=== PATIENT | male | born 1950 | race Caucasian/White ===

== ENCOUNTER 2016-05-02 09:01 | Outpatient (RCR) | payer OTHER ==
[~2016-05-02] VITALS: Ht 182.9 cm; Wt 67.6 kg
[~2016-05-02 09:01] MED LIST: Atropine Sulfate 0.4mg/ml inj IVP PRN
[2016-05-02] MEDS ORDERED: Ketorolac 60mg Inj ONE (09:02)
[2016-05-02] MEDS ORDERED: NS 550ML IV ONE (09:02)
[2016-05-02] MEDS ORDERED: Midazolam 2mg/2ml Inj ONE (09:02)
[2016-05-02] MEDS ORDERED: Methohexital Sodium Syr 100mg/10ml IVP ONE (09:02)
[2016-05-02] MEDS ORDERED: Succinylcholine 20mg/ml 10ml vial ONE (09:02)
== END 2016-05-22 | disposition home or self-care (01) ==
LOC: ECT 09:01
DX: F33.2 Major depressive disorder, recurrent severe without psychotic features (principal); F34.1 Dysthymic disorder; F19.10 Other psychoactive substance abuse, uncomplicated; C22.7 Other specified carcinomas of liver; I10 Essential (primary) hypertension; K21.9 Gastro-esophageal reflux disease without esophagitis
CPT/HCPCS: 90870; J0330; J2250; J7040

== ENCOUNTER 2016-05-28 09:21 | Outpatient (RCR) | payer OTHER ==
[~2016-05-28] VITALS: Ht 182.9 cm; Wt 67.6 kg
[~2016-05-28 09:21] MED LIST changes: -Atropine Sulfate 0.4mg/ml inj IVP PRN; +Heplock Flush 100 units/ml 3 ml syr IV SCH
[2016-05-28] MEDS ORDERED: Ketorolac 30mg Inj ONE (09:22)
[2016-05-28] MEDS ORDERED: NS 550ML IV ONE (09:22)
[2016-05-28] MEDS ORDERED: Heplock Flush 100 units/ml 3 ml syr ONE (09:22)
[2016-05-28] MEDS ORDERED: Midazolam 2mg/2ml Inj ONE (09:22)
[2016-05-28] MEDS ORDERED: Methohexital Sodium Syr 100mg/10ml IVP ONE (09:22)
[2016-05-28] MEDS ORDERED: Succinylcholine 20mg/ml 10ml vial ONE (09:22)
== END 2016-06-19 | disposition home or self-care (01) ==
LOC: ECT 09:21
DX: F33.2 Major depressive disorder, recurrent severe without psychotic features (principal)
CPT/HCPCS: 90870; J0330; J1642; J1885; J2250; J7040

== ENCOUNTER 2016-06-25 08:18 | Outpatient (RCR) | payer OTHER ==
[~2016-06-25] VITALS: Ht 182.9 cm; Wt 67.6 kg
[2016-06-25] MEDS ORDERED: Methohexital Sodium Syr 100mg/10ml IVP ONE (08:19)
[2016-06-25] MEDS ORDERED: Midazolam 2mg/2ml Inj ONE (08:19)
[2016-06-25] MEDS ORDERED: NS 550ML IV ONE (08:19)
[2016-06-25] MEDS ORDERED: Ketorolac 60mg Inj ONE (08:19)
[2016-06-25] MEDS ORDERED: Succinylcholine 20mg/ml 10ml vial ONE (08:19)
[2016-06-25] MEDS ORDERED: Heplock Flush 100 units/ml 3 ml syr ONE (08:19)
[2016-06-25] MEDS ORDERED: Heplock Flush 100 units/ml 3 ml syr IV ONE (12:30)
[2016-06-25] MEDS ORDERED: Atropine Sulfate 0.4mg/ml inj IVP PRN (18:15)
== END 2016-07-20 | disposition home or self-care (01) ==
LOC: ECT 08:18
DX: F33.2 Major depressive disorder, recurrent severe without psychotic features (principal)
CPT/HCPCS: 90870; J0330; J1642; J2250; J7040

== ENCOUNTER 2016-07-25 06:35 | Outpatient (RCR) | payer OTHER ==
[~2016-07-25] VITALS: Ht 182.9 cm; Wt 67.6 kg
[2016-07-25] MEDS ORDERED: NS 550ML IV ONE (06:36)
[2016-07-25] MEDS ORDERED: Midazolam 2mg/2ml Inj ONE (06:36)
[2016-07-25] MEDS ORDERED: Methohexital Sodium Syr 100mg/10ml IVP ONE (06:36)
[2016-07-25] MEDS ORDERED: Ketorolac 30mg Inj ONE (06:36)
[2016-07-25] MEDS ORDERED: Heplock Flush 100 units/ml 3 ml syr ONE (06:36)
[2016-07-25] MEDS ORDERED: Succinylcholine 20mg/ml 10ml vial ONE (06:36)
[2016-07-25] MEDS ORDERED: Heplock Flush 100 units/ml 3 ml syr IV ONE (12:30)
== END 2016-08-19 | disposition home or self-care (01) ==
LOC: ECT 06:35
DX: F33.2 Major depressive disorder, recurrent severe without psychotic features (principal)
CPT/HCPCS: 90870; J0330; J1642; J1885; J2250; J7040

== ENCOUNTER 2016-08-22 05:11 | Outpatient (RCR) | payer OTHER ==
[~2016-08-22] VITALS: Ht 182.9 cm; Wt 67.6 kg
[2016-08-22] MEDS ORDERED: Ketorolac 60mg Inj ONE (05:12)
[2016-08-22] MEDS ORDERED: Succinylcholine 20mg/ml 10ml vial ONE (05:12)
[2016-08-22] MEDS ORDERED: NS 550ML IV ONE (05:12)
[2016-08-22] MEDS ORDERED: Midazolam 2mg/2ml Inj ONE (05:12)
[2016-08-22] MEDS ORDERED: Heplock Flush 100 units/ml 3 ml syr ONE (05:12)
[2016-08-22] MEDS ORDERED: Methohexital Sodium Syr 100mg/10ml IVP ONE (05:12)
[2016-08-22] MEDS ORDERED: Heplock Flush 100 units/ml 3 ml syr IV ONE (08:37)
[2016-09-19] MEDS ORDERED: Methohexital Sodium Syr 100mg/10ml IVP ONE (07:00)
[2016-09-19] MEDS ORDERED: Ketorolac 60mg Inj ONE (07:00)
[2016-09-19] MEDS ORDERED: Midazolam 2mg/2ml Inj ONE (07:00)
[2016-09-19] MEDS ORDERED: Succinylcholine 20mg/ml 10ml vial ONE (07:00)
[2016-09-19] MEDS ORDERED: NS 550ML IV ONE (07:00)
== END 2016-09-19 | disposition home or self-care (01) ==
LOC: ECT 05:11
DX: F33.2 Major depressive disorder, recurrent severe without psychotic features (principal)
CPT/HCPCS: 90870; J0330; J1642; J2250; J7040

== ENCOUNTER 2016-10-15 06:04 | Outpatient (RCR) | payer OTHER ==
[~2016-10-15] VITALS: Ht 182.9 cm; Wt 67.6 kg
[2016-10-15] MEDS ORDERED: Midazolam 2mg/2ml Inj ONE (06:05)
[2016-10-15] MEDS ORDERED: Ketorolac 60mg Inj ONE (06:05)
[2016-10-15] MEDS ORDERED: Succinylcholine 20mg/ml 10ml vial ONE (06:05)
[2016-10-15] MEDS ORDERED: Methohexital Sodium Syr 100mg/10ml IVP ONE (06:05)
[2016-10-15] MEDS ORDERED: NS 550ML IV ONE (06:05)
== END 2016-10-19 | disposition home or self-care (01) ==
LOC: ECT 06:04
DX: F33.2 Major depressive disorder, recurrent severe without psychotic features (principal)
CPT/HCPCS: 90870; J0330; J2250; J7040

== ENCOUNTER 2016-11-12 05:17 | Outpatient (RCR) | payer OTHER ==
[~2016-11-12] VITALS: Ht 33 cm; Wt 0.5 kg
[2016-11-12] MEDS ORDERED: Succinylcholine 20mg/ml 10ml vial ONE (05:18)
[2016-11-12] MEDS ORDERED: Ketorolac 60mg Inj ONE (05:18)
[2016-11-12] MEDS ORDERED: Methohexital Sodium Syr 100mg/10ml IVP ONE (05:18)
[2016-11-12] MEDS ORDERED: NS 550ML IV ONE (05:18)
[2016-11-12] MEDS ORDERED: Midazolam 2mg/2ml Inj ONE (05:18)
== END 2016-11-19 | disposition home or self-care (01) ==
LOC: ECT 05:17
DX: F33.2 Major depressive disorder, recurrent severe without psychotic features (principal)
CPT/HCPCS: 90870; J0330; J2250; J7040

== ENCOUNTER 2016-12-10 07:24 | Outpatient (RCR) | payer OTHER ==
[~2016-12-10] VITALS: Ht 182.9 cm; Wt 67.6 kg
[2016-12-10] MEDS ORDERED: Methohexital Sodium Syr 100mg/10ml IVP ONE (07:25)
[2016-12-10] MEDS ORDERED: Midazolam 2mg/2ml Inj ONE (07:25)
[2016-12-10] MEDS ORDERED: Succinylcholine 20mg/ml 10ml vial ONE (07:25)
[2016-12-10] MEDS ORDERED: Ketorolac 60mg Inj ONE (07:25)
[2016-12-10] MEDS ORDERED: NS 550ML IV ONE (07:25)
== END 2016-12-20 | disposition home or self-care (01) ==
LOC: ECT 07:24
DX: F33.2 Major depressive disorder, recurrent severe without psychotic features (principal)
CPT/HCPCS: 90870; J0330; J2250; J7040

== ENCOUNTER 2017-01-21 07:21 | Outpatient (RCR) | payer OTHER ==
[~2017-01-21] VITALS: Ht 30.5 cm; Wt 0.5 kg
[2017-01-21] MEDS ORDERED: Midazolam 2mg/2ml Inj ONE (07:22)
[2017-01-21] MEDS ORDERED: Ketorolac 60mg Inj ONE (07:22)
[2017-01-21] MEDS ORDERED: NS 500ML IV ONE (07:22)
[2017-01-21] MEDS ORDERED: Methohexital Sodium Syr 100mg/10ml IVP ONE (07:22)
[2017-01-21] MEDS ORDERED: Succinylcholine 20mg/ml 10ml vial ONE (07:22)
[2017-01-21] MEDS ORDERED: Sodium Chloride 500ML 500 ML IV ONE (08:45)
[2017-01-21] MEDS ORDERED: Heplock Flush 100 units/ml 3 ml syr INJ ONE ×2 (08:45)
== END 2017-02-19 | disposition home or self-care (01) ==
LOC: ECT 07:21
DX: F33.2 Major depressive disorder, recurrent severe without psychotic features (principal)
CPT/HCPCS: 90870; J0330; J1642; J2250; J7040

== ENCOUNTER 2017-03-01 05:05 | Outpatient (RCR) | payer OTHER ==
[~2017-03-01] VITALS: Ht 182.9 cm; Wt 67.6 kg
[2017-03-01] MEDS ORDERED: Succinylcholine 20mg/ml 10ml vial ONE (05:06)
[2017-03-01] MEDS ORDERED: Midazolam 2mg/2ml Inj ONE (05:06)
[2017-03-01] MEDS ORDERED: NS 500ML ONE (05:06)
[2017-03-01] MEDS ORDERED: Methohexital Sodium Syr 100mg/10ml IVP ONE (05:06)
[2017-03-01] MEDS ORDERED: Ketorolac 60mg Inj ONE (05:06)
[2017-03-01] MEDS ORDERED: Heplock Flush 100 units/ml 3 ml syr IV ONE (08:15)
[2017-03-01] MEDS ORDERED: Sodium Chloride 500ML 500 ML IV ONE (08:15)
[2017-03-01 08:37] VITALS: BP 172/92
[2017-03-01 08:55] VITALS: BP 167/73
[2017-03-01 09:00] VITALS: BP 147/66
[2017-03-01 09:05] VITALS: BP 140/75
[2017-03-01 09:10] VITALS: BP 140/75
[2017-03-04] MEDS ORDERED: Succinylcholine 20mg/ml 10ml vial ONE (07:00)
[2017-03-04] MEDS ORDERED: Methohexital Sodium Syr 100mg/10ml IVP ONE (07:00)
[2017-03-04] MEDS ORDERED: Midazolam 2mg/2ml Inj ONE (07:00)
[2017-03-04] MEDS ORDERED: Ketorolac 60mg Inj ONE (07:00)
[2017-03-04] MEDS ORDERED: NS 500ML ONE (07:00)
[2017-03-04] MEDS ORDERED: Heplock Flush 100 units/ml 3 ml syr ONE (10:51)
[2017-03-04] MEDS ORDERED: Heplock Flush 100 units/ml 3 ml syr INJ ONE (10:51)
[2017-03-04] MEDS ORDERED: Sodium Chloride 500ML 500 ML IV ONE (10:51)
[2017-03-04 11:00] VITALS: BP 165/94
[2017-03-04 11:15] VITALS: BP 141/62
[2017-03-04 11:20] VITALS: BP 131/67
[2017-03-04 11:25] VITALS: BP 127/58
[2017-03-04 11:30] VITALS: BP 130/63
[2017-03-08] MEDS ORDERED: Midazolam 2mg/2ml Inj ONE (06:00)
[2017-03-08] MEDS ORDERED: Ketorolac 60mg Inj ONE (06:00)
[2017-03-08] MEDS ORDERED: NS 500ML ONE (06:00)
[2017-03-08] MEDS ORDERED: Methohexital Sodium Syr 100mg/10ml IVP ONE (06:00)
[2017-03-08] MEDS ORDERED: Succinylcholine 20mg/ml 10ml vial ONE (06:00)
[2017-03-08] MEDS ORDERED: Sodium Chloride 500ML 500 ML IV ONE (08:45)
[2017-03-08] MEDS ORDERED: Heplock Flush 100 units/ml 3 ml syr IV ONE (08:45)
[2017-03-08 08:54] VITALS: BP 168/103
[2017-03-08 09:05] VITALS: BP 136/70
[2017-03-08 09:10] VITALS: BP 136/70
[2017-03-08 09:15] VITALS: BP 138/69
[2017-03-08 09:20] VITALS: BP 134/73
== END 2017-03-21 | disposition home or self-care (01) ==
LOC: ECT 05:05
DX: F33.2 Major depressive disorder, recurrent severe without psychotic features (principal)
CPT/HCPCS: 90870; J0330; J1642; J2250; J7040

== ENCOUNTER 2017-03-27 07:23 | Outpatient (RCR) | payer OTHER ==
[~2017-03-27] VITALS: Ht 182.9 cm; Wt 67.6 kg
[2017-03-27] MEDS ORDERED: Ketorolac 60mg Inj ONE (07:24)
[2017-03-27] MEDS ORDERED: Midazolam 2mg/2ml Inj ONE (07:24)
[2017-03-27] MEDS ORDERED: Succinylcholine 20mg/ml 10ml vial ONE (07:24)
[2017-03-27] MEDS ORDERED: Methohexital Sodium Syr 100mg/10ml IVP ONE (07:24)
[2017-03-27] MEDS ORDERED: NS 500ML ONE (07:24)
[2017-03-27 08:44] VITALS: BP 155/89
[2017-03-27 09:05] VITALS: BP 164/79
[2017-03-27 09:10] VITALS: BP 136/67
[2017-03-27 09:15] VITALS: BP 119/58
[2017-03-27 09:20] VITALS: BP 126/57
[2017-03-27] MEDS ORDERED: Sodium Chloride 500ML 500 ML IV ONE (09:40)
[2017-03-27] MEDS ORDERED: Heplock Flush 100 units/ml 3 ml syr IV ONE (16:30)
[2017-03-29] VITALS (7 sets, daily range): BP systolic 121–173; BP diastolic 53–87
[2017-03-29] MEDS ORDERED: Succinylcholine 20mg/ml 10ml vial ONE (07:00)
[2017-03-29] MEDS ORDERED: Midazolam 2mg/2ml Inj ONE (07:00)
[2017-03-29] MEDS ORDERED: Ketorolac 60mg Inj ONE (07:00)
[2017-03-29] MEDS ORDERED: NS 500ML ONE (07:00)
[2017-03-29] MEDS ORDERED: Methohexital Sodium Syr 100mg/10ml IVP ONE (07:00)
[2017-03-29] MEDS ORDERED: Heplock Flush 100 units/ml 3 ml syr IV SCH (09:15)
[2017-03-29] MEDS ORDERED: Heplock Flush 100 units/ml 3 ml syr INJ ONE (09:52)
[2017-03-29] MEDS ORDERED: Sodium Chloride 500ML 500 ML IV ONE (09:52)
[2017-04-01] MEDS ORDERED: Methohexital Sodium Syr 100mg/10ml IVP ONE (08:00)
[2017-04-01] MEDS ORDERED: Ketorolac 60mg Inj ONE (08:00)
[2017-04-01] MEDS ORDERED: Succinylcholine 20mg/ml 10ml vial ONE (08:00)
[2017-04-01] MEDS ORDERED: Midazolam 2mg/2ml Inj ONE (08:00)
[2017-04-01] MEDS ORDERED: NS 500ML ONE (08:00)
[2017-04-01 09:59] VITALS: BP 143/74
[2017-04-01] MEDS ORDERED: Sodium Chloride 500ML 500 ML IV ONE (10:17)
[2017-04-01 10:20] VITALS: BP 121/62
[2017-04-01 10:25] VITALS: BP 120/62
[2017-04-01 10:30] VITALS: BP 110/57
[2017-04-01 10:35] VITALS: BP 115/54
[2017-04-03] MEDS ORDERED: Midazolam 2mg/2ml Inj ONE (08:00)
[2017-04-03] MEDS ORDERED: Methohexital Sodium Syr 100mg/10ml IVP ONE (08:00)
[2017-04-03] MEDS ORDERED: Ketorolac 60mg Inj ONE (08:00)
[2017-04-03] MEDS ORDERED: Succinylcholine 20mg/ml 10ml vial ONE (08:00)
[2017-04-03] MEDS ORDERED: NS 500ML ONE (08:00)
[2017-04-03 08:20] VITALS: BP 168/97
[2017-04-03] MEDS ORDERED: Sodium Chloride 500ML 500 ML IV ONE (08:41)
[2017-04-03 08:45] VITALS: BP 156/74
[2017-04-03 08:50] VITALS: BP 155/70
[2017-04-03 08:55] VITALS: BP 139/68
[2017-04-03 09:00] VITALS: BP 126/66
[2017-04-08] MEDS ORDERED: Ketorolac 60mg Inj ONE (08:00)
[2017-04-08] MEDS ORDERED: NS 500ML ONE (08:00)
[2017-04-08] MEDS ORDERED: Succinylcholine 20mg/ml 10ml vial ONE (08:00)
[2017-04-08] MEDS ORDERED: Midazolam 2mg/2ml Inj ONE (08:00)
[2017-04-08] MEDS ORDERED: Methohexital Sodium Syr 100mg/10ml IVP ONE (08:00)
[2017-04-08 08:05] VITALS: BP 146/93
[2017-04-08] MEDS ORDERED: Sodium Chloride 500ML 500 ML IV ONE (08:24)
[2017-04-08 08:25] VITALS: BP 126/59
[2017-04-08 08:30] VITALS: BP 128/57
[2017-04-08 08:35] VITALS: BP 124/59
[2017-04-08 08:40] VITALS: BP 125/58
[2017-04-12] MEDS ORDERED: Sodium Chloride 500ML 500 ML IV ONE (07:35)
[2017-04-12] MEDS ORDERED: Heplock Flush 100 units/ml 3 ml syr IV ONE (07:45)
[2017-04-12] MEDS ORDERED: Midazolam 2mg/2ml Inj ONE (08:00)
[2017-04-12] MEDS ORDERED: Ketorolac 60mg Inj ONE (08:00)
[2017-04-12] MEDS ORDERED: Methohexital Sodium Syr 100mg/10ml IVP ONE (08:00)
[2017-04-12] MEDS ORDERED: Succinylcholine 20mg/ml 10ml vial ONE (08:00)
[2017-04-12] MEDS ORDERED: NS 500ML ONE (08:00)
[2017-04-12 08:05] VITALS: BP 144/67
[2017-04-12 08:10] VITALS: BP 118/61
[2017-04-12 08:15] VITALS: BP 119/59
[2017-04-12 08:20] VITALS: BP 114/55
[2017-04-12 08:25] VITALS: BP 117/57
[2017-04-12 09:47] VITALS: BP 174/99
== END 2017-04-21 | disposition home or self-care (01) ==
LOC: ECT 07:23
DX: F33.2 Major depressive disorder, recurrent severe without psychotic features (principal)
CPT/HCPCS: 90870; J0330; J1642; J2250; J7040

== ENCOUNTER 2017-05-08 05:52 | Outpatient (RCR) | payer OTHER ==
[~2017-05-08] VITALS: Ht 182.9 cm; Wt 67.6 kg
[2017-05-08] MEDS ORDERED: Succinylcholine 20mg/ml 10ml vial ONE (05:53)
[2017-05-08] MEDS ORDERED: Midazolam 2mg/2ml Inj ONE (05:53)
[2017-05-08] MEDS ORDERED: NS 500ML ONE (05:53)
[2017-05-08] MEDS ORDERED: Ketorolac 60mg Inj ONE (05:53)
[2017-05-08] MEDS ORDERED: Methohexital Sodium Syr 100mg/10ml IVP ONE (05:53)
[2017-05-08 10:02] VITALS: BP 157/85
[2017-05-08] MEDS ORDERED: Sodium Chloride 500ML 500 ML IV ONE (10:23)
[2017-05-08 10:25] VITALS: BP 128/58
[2017-05-08 10:30] VITALS: BP 127/57
[2017-05-08 10:35] VITALS: BP 120/55
[2017-05-08 10:40] VITALS: BP 109/55
[2017-05-22] MEDS ORDERED: Ketorolac 60mg Inj ONE (08:00)
[2017-05-22] MEDS ORDERED: Midazolam 2mg/2ml Inj ONE (08:00)
[2017-05-22] MEDS ORDERED: Methohexital Sodium Syr 100mg/10ml IVP ONE (08:00)
[2017-05-22] MEDS ORDERED: Succinylcholine 20mg/ml 10ml vial ONE (08:00)
[2017-05-22 08:08] VITALS: BP 169/93
[2017-05-22] MEDS ORDERED: Sodium Chloride 500ML 500 ML IV ONE (08:09)
[2017-05-22] MEDS ORDERED: Heplock Flush 100 units/ml 3 ml syr INJ ONE (08:09)
[2017-05-22 08:25] VITALS: BP 110/54
[2017-05-22 08:30] VITALS: BP 97/51
[2017-05-22 08:35] VITALS: BP 102/52
[2017-05-22 08:40] VITALS: BP 112/53
== END 2017-05-22 | disposition home or self-care (01) ==
LOC: ECT 05:52
DX: F33.2 Major depressive disorder, recurrent severe without psychotic features (principal)
CPT/HCPCS: 90870; J0330; J1642; J2250; J7040

== ENCOUNTER 2017-06-12 06:38 | Outpatient (RCR) | payer OTHER ==
[~2017-06-12] VITALS: Ht 33 cm; Wt 0.5 kg
[~2017-06-12 06:38] MED LIST changes: -Heplock Flush 100 units/ml 3 ml syr IV SCH; +Ketorolac 60mg Inj ONE; +Methohexital Sodium Syr 100mg/10ml IVP ONE; +Midazolam 2mg/2ml Inj ONE; +Succinylcholine 20mg/ml 10ml vial ONE
[2017-06-12] MEDS ORDERED: Heplock Flush 100 units/ml 3 ml syr ONE (06:39)
[2017-06-12] MEDS ORDERED: Sodium Chloride 500ML 500 ML IV ONE (07:55)
[2017-06-12] MEDS ORDERED: Heplock Flush 100 units/ml 3 ml syr INJ ONE (07:55)
[2017-06-12 08:17] VITALS: BP 138/70
[2017-06-12 08:25] VITALS: BP 101/45
[2017-06-12 08:30] VITALS: BP 110/49
[2017-06-12 08:35] VITALS: BP 115/73
[2017-06-12 08:40] VITALS: BP 115/47
== END 2017-06-19 | disposition home or self-care (01) ==
LOC: ECT 06:38
DX: F33.2 Major depressive disorder, recurrent severe without psychotic features (principal)
CPT/HCPCS: 90870; J0330; J1642; J2250

== ENCOUNTER 2017-07-03 05:15 | Outpatient (RCR) | payer OTHER ==
[~2017-07-03] VITALS: Ht 182.9 cm; Wt 67.6 kg
[2017-07-03] MEDS ORDERED: Methohexital Sodium Syr 100mg/10ml IVP ONE (05:16)
[2017-07-03] MEDS ORDERED: Succinylcholine 20mg/ml 10ml vial ONE (05:16)
[2017-07-03] MEDS ORDERED: Midazolam 2mg/2ml Inj ONE (05:16)
[2017-07-03] MEDS ORDERED: Ketorolac 60mg Inj ONE (05:16)
[2017-07-03] MEDS ORDERED: NS 500ML ONE (05:16)
[2017-07-03] MEDS ORDERED: Sodium Chloride 500ML 500 ML IV ONE (09:46)
[2017-07-03 09:50] VITALS: BP 143/63
[2017-07-03 09:55] VITALS: BP 132/59
[2017-07-03 10:00] VITALS: BP 124/55
[2017-07-03 10:05] VITALS: BP 126/50
== END 2017-07-20 | disposition home or self-care (01) ==
LOC: ECT 05:15
DX: F33.2 Major depressive disorder, recurrent severe without psychotic features (principal)
CPT/HCPCS: 90870; J0330; J2250; J7040

== ENCOUNTER 2017-07-22 08:42 | Outpatient (RCR) | payer OTHER ==
[~2017-07-22] VITALS: Ht 30.5 cm; Wt 0.5 kg
[2017-07-22] MEDS ORDERED: Succinylcholine 20mg/ml 10ml vial ONE (08:43)
[2017-07-22] MEDS ORDERED: Methohexital Sodium 500mg Vial IVP ONE (08:43)
[2017-07-22] MEDS ORDERED: Ketorolac 60mg Inj ONE (08:43)
[2017-07-22] MEDS ORDERED: Midazolam 2mg/2ml Inj ONE (08:43)
[2017-07-22] MEDS ORDERED: NS 500ML ONE (08:43)
[2017-07-29] MEDS ORDERED: Heplock Flush 100 units/ml 3 ml syr INJ ONE (07:25)
[2017-07-29] MEDS ORDERED: Sodium Chloride 500ML 500 ML IV ONE (07:25)
[2017-07-29 07:38] VITALS: BP 143/77
[2017-07-29 08:08] VITALS: BP 141/95
[2017-07-29 08:13] VITALS: BP 161/87
[2017-07-29 08:18] VITALS: BP 173/72
[2017-07-29 08:23] VITALS: BP 133/64
== END 2017-08-19 | disposition home or self-care (01) ==
LOC: ECT 08:42
DX: F33.2 Major depressive disorder, recurrent severe without psychotic features (principal)
CPT/HCPCS: 90870; J0330; J1642; J2250; J3490; J7040